=== PATIENT | female | born 1980 | race Caucasian/White ===

== ENCOUNTER 2017-01-30 11:11 | Emergency (ER) | payer OTHER ==
[~2017-01-30] VITALS: Ht 154.9 cm; Wt 98.5 kg
[2017-01-30 11:15] VITALS: BP 107/67
--- NOTE | 2017-01-30 11:23 | NUR ---
PATIENT IS A 36 YO FEMALE BIB SELF FOR BOTH EARS FEELIING CLOGGED, PATIENT IS AWAKE AND ALERT NO DISTRESS NOTED. TO BED 7 FOR MD GOODE.
--- NOTE | 2017-01-30 11:31 | NUR ---
Dr. Ventura evaluating patient at bedside.
--- NOTE | 2017-01-30 11:51 | NUR ---
IRRIGATED TO YARELY EARS DONE BY GLORIA DAVIS. PT TOLERATED PREOCEDURE WELL.
--- NOTE | 2017-01-30 11:51 | NUR ---
Zhanna rodriguez in EDM - 01/30/17 at 1157 by MED1 IRRIGATED TO L EAR DONE BY GLORIA DAVIS. PT TOLERATED PREOCEDURE WELL.
[2017-01-30 12:54] VITALS: BP 100/60
--- NOTE | 2017-01-30 12:54 | NUR ---
Patient discharged with v/s stable. Written and verbal after care instructions given and explained. Patient alert, oriented and verbalized understanding of instructions. Ambulatory with steady gait. All questions addressed prior to discharge. ID band removed. Patient advised to follow up with PMD. Rx of IBUPROFEN & CORTISPORIN given. Patient educated on indication of medication including possible reaction and side effects. Opportunity to ask questions provided and answered.
== END 2017-01-30 12:54 | disposition home or self-care (01) ==
LOC: MED 11:11
DX: H60.93 Unspecified otitis externa, bilateral (principal); H61.23 Impacted cerumen, bilateral
CPT/HCPCS: 99283

== ENCOUNTER 2019-01-09 08:54 | Emergency (ER) | payer OTHER ==
[~2019-01-09] VITALS: Ht 154.9 cm; Wt 98.5 kg
[2019-01-09 09:13] VITALS: BP 114/69
--- NOTE | 2019-01-09 09:21 | NUR ---
C/O LT ARM PAIN/SWELLING SINCE WEDNESDAY AFTER FE INFUSION X 5 DAYS, LITTLE FLEXION, UNABLE TO EXTEND LT ARM. HX: LOW FE . DENIES N/V/D; SKIN IS PINK/WARM/DRY; AAOX4 WITH EVEN AND STEADY GAIT; LUNGS CLEAR BL; HR EVEN AND REGULAR; PT DENIES ANY FEVER, CP, SOB, OR COUGH AT THIS TIME; PATIENT STATES PAIN OF 5/10 AT THIS TIME; VSS; PATIENT POSITIONED FOR COMFORT; HOB ELEVATED; BEDRAILS UP X2; BED DOWN. ER MD MADE AWARE OF PT STATUS.
[2019-01-09 10:36] VITALS: BP 110/72
--- NOTE | 2019-01-09 10:36 | NUR ---
Patient discharged with v/s stable. Written and verbal after care instructions given and explained. Patient verbalized understanding. Carried with steady gait. All questions addressed prior to discharge. Advised to follow up with PMD.
== END 2019-01-09 10:36 | disposition home or self-care (01) ==
LOC: MED 08:54
DX: I80.9 Phlebitis and thrombophlebitis of unspecified site (principal); D50.9 Iron deficiency anemia, unspecified
CPT/HCPCS: 93971; 99284; Q0092

== ENCOUNTER 2020-05-11 17:40 | Emergency (ER) | payer OTHER ==
[~2020-05-11] VITALS: Ht 157.5 cm; Wt 97.5 kg
[2020-05-11 17:53] VITALS: BP 115/75
--- NOTE | 2020-05-11 17:57 | NUR ---
Patient ambulated to bed 10. RN evaluating the patient at bedside.
--- NOTE | 2020-05-11 17:57 | NUR ---
PATIENT AMBULATED TO BED 10
--- NOTE | 2020-05-11 18:07 | NUR ---
Dr. Herbert is evaluating the patient with female bus repair supervisor.
--- NOTE | 2020-05-11 18:13 | NUR ---
STOOD IN FEMALE HAT BAND ATTACHER FOR DR. NGO DURING PATIENT EXAM
[2020-05-11] MEDS ORDERED: KETOROLAC 30 MG/ML VIAL IVP ONE (18:15)
--- NOTE | 2020-05-11 18:30 | NUR ---
39 Y/O F C/O R BREAST PAIN, HURTS ON INSPIRATION AND EXPIRATION. WAS COVID POSITIVE IN MARCH, DR CLEARED HER. DENIES ANY CHEST PAIN, SOB, AND COUGH. 8/10 ACHING AND TENDER PAIN STARTED 05/04/20. PT STATED IT STARTED 2 MO AGO, BUT HAS GOTTEN WORSE. HAS BEEN TAKING IBUPROFEN FOR PAIN, LAST DOSE WAS @1800 800MG. PT SAYS SHE'S NORMALLY CONSTIPATED AND BURNING WHILE URINATING. LMP: 05/02/20. NO PMH.
[2020-05-11 18:47] LABS: BASOPHILS # (AUTO) 0.1 K/uL (0.00-0.22); EOSINOPHILS # (AUTO) 0.2 K/uL (0-0.4); HEMOGLOBIN 7.9 g/dL (12.0-16.0); MONOCYTES # (AUTO) 0.7 K/uL (0.8-1.0); WHITE BLOOD COUNT (AUTO) 10.8 K/uL (4.8-10.8)
[2020-05-11 18:50] LABS: ANION GAP 14.5 (8-16); CARBON DIOXIDE 27.1 mmol/L (21-32); CREATININE 0.7 mg/dL (0.6-1.3); POTASSIUM 3.6 mmol/L (3.5-5.1)
[2020-05-11 18:58] LABS: BASOPHILS % (AUTO) 0.6 % (0.0-2.0); HEMATOCRIT 25.4 % (36-48); LYMPHOCYTES # (AUTO) 2.2 K/uL (2.5-16.5); LYMPHOCYTES % (AUTO) 20.7 % (20.5-51.1); MEAN CORPUSCULAR HEMOGLOBIN 18 pg (27-31); MEAN CORPUSCULAR HGB CONC 31 g/dL (33-37); MEAN CORPUSCULAR VOLUME 57.2 fL (80-94); MONOCYTES % (AUTO) 6.4 % (1.7-9.3); NEUTROPHILS # (AUTO) 7.6 K/uL (1.8-7.7); NEUTROPHILS % (AUTO) 70.3 % (42.2-75.2); PLATELET COUNT (AUTO) 411 K/uL (140-450); RED BLOOD CELL COUNT(AUTO) 4.44 MIL/uL (4.20-5.40); RED CELL DISTRIBUTION WIDTH 21.8 % (11.6-13.7)
--- NOTE | 2020-05-11 19:15 | NUR ---
RECEIVED TRANSDFER OF CARE REPORT FROM SVETLANA CABALLERO FOR CONTINUATION OF CARE.
--- NOTE | 2020-05-11 19:27 | NUR ---
PT FOUND AWAKE IN SEMI-FOWLERS POSITION IN BED. PT STATES NO PAIN, NO DISCOMFORT, AND NO DISTRESS. BED IS LOCKED IN LOWEST POSITION WITH 1 SIDE RAIL UP. WILL CONTINUE TO MONITOR.
--- NOTE | 2020-05-11 19:32 | NUR ---
URINE SAMPLE COLLECTED AND PLACED IN DIRTY UTILITY.
--- NOTE | 2020-05-11 19:38 | NUR ---
PT TAKEN TO CT VIA WHEELCHAIR BY FINANCIAL SALES MANAGER.
--- NOTE | 2020-05-11 19:54 | NUR ---
PT RETURNED TO BED FROM CT VIA WHEELCHAIR BY RADIOLOGIST TECH.
--- NOTE | 2020-05-11 20:28 | NUR ---
PT WAS PROVIDED A CUP OF WATER.
--- NOTE | 2020-05-11 21:06 | NUR ---
ERMD AT BEDSIDE FOR MEDICAL EVALUATION.
[2020-05-11 21:20] VITALS: BP 103/56
--- NOTE | 2020-05-11 21:20 | NUR ---
Patient discharged with v/s stable. Written and verbal after care instructions given and explained. Patient alert, oriented and verbalized understanding of instructions. Ambulatory with steady gait. All questions addressed prior to discharge. ID band removed. Patient advised to follow up with PMD. Rx of LIDODERM AND NAPROXEN given. Patient educated on indication of medication including possible reaction and side effects. Opportunity to ask questions provided and answered.
--- NOTE | 2020-05-11 21:20 | NUR ---
IV removed, catheter intact and site benign. Applied folded 4x4 gauze and tape to stop bleeding.
== END 2020-05-11 21:20 | disposition home or self-care (01) ==
LOC: MED 17:40
DX: M94.0 Chondrocostal junction syndrome [Tietze] (principal); I95.9 Hypotension, unspecified; L29.9 Pruritus, unspecified; D64.9 Anemia, unspecified
CPT/HCPCS: 36415; 71045; 71275; 80048; 81025; 84484; 85025; 85379; 93005; 96374; 99285; J1885; Q9967

== ENCOUNTER 2021-03-14 11:58 | Emergency (ER) | payer OTHER ==
[~2021-03-14] VITALS: Ht 154.9 cm; Wt 75.7 kg
[2021-03-14 12:14] VITALS: BP 97/56
--- NOTE | 2021-03-14 12:23 | NUR ---
PT C/O DIZZINESS AND NAUSEA SINCE THIS AM. PT STATES HX OF ANEMIA AND CONCERNED HER HGB MAY BE LOW. PT APPEARS ANXIOUS. PENDING ER MD GOODE.
[2021-03-14] MEDS ORDERED: NACL 0.9% 1,000 ML IV ONE (12:55)
[2021-03-14 14:11] LABS: BASOPHILS # (AUTO) 0.1 K/uL (0.00-0.22); BASOPHILS % (AUTO) 0.8 % (0.0-2.0); EOSINOPHILS # (AUTO) 0.2 K/uL (0-0.4); EOSINOPHILS % (AUTO) 2.3 % (0.0-4.0); HEMATOCRIT 24.6 % (36-48); HEMOGLOBIN 7.5 g/dL (12.0-16.0); LYMPHOCYTES # (AUTO) 1.5 K/uL (2.5-16.5); LYMPHOCYTES % (AUTO) 22.8 % (20.5-51.1); MEAN CORPUSCULAR HEMOGLOBIN 17 pg (27-31); MEAN CORPUSCULAR HGB CONC 31 g/dL (33-37); MEAN CORPUSCULAR VOLUME 54.3 fL (80-94); MONOCYTES # (AUTO) 0.4 K/uL (0.8-1.0); MONOCYTES % (AUTO) 6.7 % (1.7-9.3); NEUTROPHILS # (AUTO) 4.4 K/uL (1.8-7.7); NEUTROPHILS % (AUTO) 67.4 % (42.2-75.2); PLATELET COUNT (AUTO) 408 K/uL (140-450); RED BLOOD CELL COUNT(AUTO) 4.53 MIL/uL (4.20-5.40); RED CELL DISTRIBUTION WIDTH 21.7 % (11.6-13.7); WHITE BLOOD COUNT (AUTO) 6.5 K/uL (4.8-10.8)
--- NOTE | 2021-03-14 14:14 | NUR ---
PT TAKEN TO CHAIR Amira.
[2021-03-14 14:20] LABS: ALBUMIN 3.9 g/dL (3.4-5.0); ANION GAP 10.5 (8-16); CARBON DIOXIDE 26.1 mmol/L (21-32); CREATININE 0.7 mg/dL (0.6-1.3); POTASSIUM 3.6 mmol/L (3.5-5.1); TOTAL BILIRUBIN 0.4 mg/dL (0.0-1.0)
--- NOTE | 2021-03-14 14:56 | NUR ---
PT AMBULATED TO ER BED 6
--- NOTE | 2021-03-14 16:09 | NUR ---
pt resting in [facility], pending 1 unit prbcs. spoke to blood bank states is still crossmatching blood.
--- NOTE | 2021-03-14 17:11 | NUR ---
CALLED LAB REGARDING UNIT OF BLOOD, PER APRIL ([facility]), SHE CALLED [facility] AND THEY ARE NOT PROVIDING ANYTHING. DR BOWERS MADE AWARE
[2021-03-14 17:29] VITALS: BP 99/70
--- NOTE | 2021-03-14 17:29 | NUR ---
pt requesting to leave ama. dr taveras spoke to pt.
--- NOTE | 2021-03-14 17:30 | NUR ---
Patient does not wish to proceed with medical care recommended by dr taveras. Patient given information related to possible complications, up to and including , which could occur as a result of leaving hospital at this time. Patient verbalizes understanding of risks involved leaving against medical advice. Patient has signed AMA form.
== END 2021-03-14 17:20 | disposition left against medical advice (07) ==
LOC: MED 11:58
DX: D50.9 Iron deficiency anemia, unspecified (principal); N92.0 Excessive and frequent menstruation with regular cycle
CPT/HCPCS: 36415; 80053; 81025; 85025; 86886; 86900; 86901; 86920; 96360; 99283; J7030

== ENCOUNTER 2023-12-11 10:54 | Inpatient (IN) | payer OTHER ==
[~2023-12-11] VITALS: Ht 157.5 cm; Wt 81.6 kg
[2023-12-11 11:14] VITALS: BP 121/62; PULSE 100; RESP 20; TEMP 97.9
[2023-12-11] MEDS: NACL 0.9% 1,000 ML IV SCH ×2 (12:10→17:23)
[2023-12-11] MEDS: KETOROLAC 30 MG/ML VIAL IVP ONE (12:13)
[2023-12-11] MEDS: ONDANSETRON 4 MG/2 ML VIAL IVP ONE (12:13)
[2023-12-11 12:19] LABS: BASOPHILS % (AUTO) 0.2 % (0.0-2.0); EOSINOPHILS # (AUTO) 0.1 K/uL (0-0.4); EOSINOPHILS % (AUTO) 0.6 % (0.0-4.0); HEMATOCRIT 40.3 % (36-48); HEMOGLOBIN 13.6 g/dL (12.0-16.0); LYMPHOCYTES # (AUTO) 1.1 K/uL (2.5-16.5); LYMPHOCYTES % (AUTO) 10.3 % (20.5-51.1); MEAN CORPUSCULAR HEMOGLOBIN 27 pg (27-31); MEAN CORPUSCULAR HGB CONC 34 g/dL (33-37); MEAN CORPUSCULAR VOLUME 80.6 fL (80-94); MONOCYTES # (AUTO) 0.7 K/uL (0.8-1.0); MONOCYTES % (AUTO) 6.9 % (1.7-9.3); NEUTROPHILS # (AUTO) 8.9 K/uL (1.8-7.7); PLATELET COUNT (AUTO) 298 K/uL (140-450); RED BLOOD CELL COUNT(AUTO) 4.99 MIL/uL (4.20-5.40); RED CELL DISTRIBUTION WIDTH 15.3 % (11.6-13.7); WHITE BLOOD COUNT (AUTO) 10.8 K/uL (4.8-10.8)
[2023-12-11 12:19] LABS: APPEARANCE,URINE SL CLOUDY (CLEAR); BILIRUBIN,URINE 2+ (NEGATIVE); BLOOD, URINE NEGATIVE (NEGATIVE); COLOR,URINE ORANGE (YELLOW); LEUKOCYTE ESTERASE ,URINE 1+ (NEGATIVE); NITRITE, URINE POSITIVE (NEGATIVE); PH,URINE 7.5 (5.0-9.0); PROTEIN,URINE TRACE (NEGATIVE); UGLUCOSE NEGATIVE (NEGATIVE)
[2023-12-11 12:30] LABS: BACTERIA,URINE >30 (MANY) /HPF (None Seen); MUCUS,URINE 1+ /LPF (None Seen); RBC,URINE 0-5 /HPF (0-5); SQUAMOUS EPITHELIAL CELL,UR 0-3 (FEW) /LPF (0-3 (FEW))
[2023-12-11 12:32] LABS: ICTOTEST POSITIVE (NEGATIVE)
[2023-12-11 12:33] LABS: ANION GAP 14.6 (8-16); CALCIUM 9.4 mg/dL (8.5-10.1); CARBON DIOXIDE 24.7 mmol/L (21-32); CREATININE 0.7 mg/dL (0.6-1.3); POTASSIUM 4.3 mmol/L (3.5-5.1)
[2023-12-11] MEDS ORDERED: PIPERACILLIN/TAZOBACTAM 3.375 GM VIAL IV ONE (13:44)
[2023-12-11] MEDS ORDERED: KCL 20 MEQ IN 100 mL PREMIX 200 ML IV PRN (13:55)
[2023-12-11] MEDS ORDERED: MAGNESIUM OXIDE 400 MG TAB PO PRN (13:55)
[2023-12-11 14:13] LABS: INR 1.02 (0.8-1.2); PARTIAL THROMBOPLASTIN TIME 27.4 secs (22-35.6); PROTHROMBIN TIME 10.7 secs (10.8-13.4)
[2023-12-11 14:14] LABS: ALBUMIN 3.5 g/dL (3.4-5.0); TOTAL BILIRUBIN 1.5 mg/dL (0.0-1.0); TOTAL PROTEIN, SERUM 7.4 g/dL (6.4-8.2)
[2023-12-11] MEDS ORDERED: SEMA2.4P SQ (14:17)
[2023-12-11] MEDS ORDERED: MULT-2472 PO (14:17)
[2023-12-11 14:19] LABS: LACTIC ACID 1.1 mmol/L (0.4-2.0)
[2023-12-11 15:00] VITALS: PULSE 72; RESP 14; O2SAT 98
[2023-12-11] MEDS: PIPERACILLIN/TAZOBACTAM 3.375 GM in DEXT 5% MINI-BAG PLUS 50 ML IV ONE (17:24)
[2023-12-11] MEDS: PIPERACILLIN/TAZOBACTAM 3.375 GM in DEXTROSE 5% 50 ML IV SCH (17:32)
[2023-12-11 17:57] VITALS: BP 97/65; PULSE 68; RESP 18; TEMP 97.2; O2SAT 100
[2023-12-11] MEDS: MORPHINE SULFATE 4 MG/ML SYR IVP PRN (19:36)
[2023-12-11 20:00] VITALS: BP 111/65; PULSE 70; RESP 18; TEMP 97; O2SAT 99
[2023-12-11] MEDS: ONDANSETRON 4 MG/2 ML VIAL IVP PRN (22:15)
[2023-12-12 04:00] VITALS: BP 98/60; PULSE 71; RESP 19; TEMP 96.6; O2SAT 98
[2023-12-12 06:51] LABS: BASOPHILS % (AUTO) 0.7 % (0.0-2.0); EOSINOPHILS # (AUTO) 0.2 K/uL (0-0.4); EOSINOPHILS % (AUTO) 3.5 % (0.0-4.0); HEMATOCRIT 35.9 % (36-48); HEMOGLOBIN 12.2 g/dL (12.0-16.0); LYMPHOCYTES # (AUTO) 1.4 K/uL (2.5-16.5); LYMPHOCYTES % (AUTO) 22.1 % (20.5-51.1); MEAN CORPUSCULAR HEMOGLOBIN 28 pg (27-31); MEAN CORPUSCULAR HGB CONC 34 g/dL (33-37); MONOCYTES # (AUTO) 0.5 K/uL (0.8-1.0); NEUTROPHILS % (AUTO) 65.7 % (42.2-75.2); PLATELET COUNT (AUTO) 289 K/uL (140-450); RED BLOOD CELL COUNT(AUTO) 4.44 MIL/uL (4.20-5.40); WHITE BLOOD COUNT (AUTO) 6.1 K/uL (4.8-10.8)
[2023-12-12 07:04] LABS: ANION GAP 10.4 (8-16); CALCIUM 8.2 mg/dL (8.5-10.1); CARBON DIOXIDE 28.4 mmol/L (21-32); CREATININE 0.9 mg/dL (0.6-1.3); MAGNESIUM 2.1 mg/dL (1.8-2.4); POTASSIUM 3.8 mmol/L (3.5-5.1); TOTAL BILIRUBIN 1.2 mg/dL (0.0-1.0); TOTAL PROTEIN, SERUM 6.5 g/dL (6.4-8.2)
[2023-12-12 08:00] VITALS: BP 91/56; PULSE 70; PULSE 74; RESP 18; TEMP 97.7; O2SAT 98; O2SAT 99
[2023-12-12] MEDS: DOCUSATE SODIUM 100 MG GELCAP PO SCH (08:54)
[2023-12-12] MEDS: MORPHINE SULFATE 4 MG/ML SYR IVP SCH (11:21)
[2023-12-12 12:00] VITALS: BP 91/56; PULSE 74; RESP 18; TEMP 97.7; O2SAT 98
[2023-12-12 16:00] VITALS: BP 101/55; PULSE 71; RESP 18; TEMP 97.9; O2SAT 100
[2023-12-12] MEDS: ACETAMINOPHEN 325 MG TAB PO PRN (18:16)
[2023-12-12 20:00] VITALS: BP 108/67; PULSE 73; RESP 18; TEMP 97.3; O2SAT 98; O2SAT 99
[2023-12-12] MEDS: MEDS-TO-BEDS MC SCH (21:00)
[2023-12-13 04:00] VITALS: BP 99/62; PULSE 69; RESP 18; TEMP 97.1; O2SAT 98
[2023-12-13 06:18] LABS: BASOPHILS % (AUTO) 0.9 % (0.0-2.0); EOSINOPHILS # (AUTO) 0.1 K/uL (0-0.4); EOSINOPHILS % (AUTO) 2.7 % (0.0-4.0); HEMATOCRIT 33.5 % (36-48); HEMOGLOBIN 11.3 g/dL (12.0-16.0); LYMPHOCYTES # (AUTO) 1.7 K/uL (2.5-16.5); LYMPHOCYTES % (AUTO) 32.5 % (20.5-51.1); MEAN CORPUSCULAR HEMOGLOBIN 27 pg (27-31); MEAN CORPUSCULAR HGB CONC 34 g/dL (33-37); MEAN CORPUSCULAR VOLUME 80.5 fL (80-94); MONOCYTES # (AUTO) 0.4 K/uL (0.8-1.0); MONOCYTES % (AUTO) 6.9 % (1.7-9.3); PLATELET COUNT (AUTO) 250 K/uL (140-450); RED BLOOD CELL COUNT(AUTO) 4.16 MIL/uL (4.20-5.40); RED CELL DISTRIBUTION WIDTH 15.1 % (11.6-13.7); WHITE BLOOD COUNT (AUTO) 5.2 K/uL (4.8-10.8)
[2023-12-13 06:35] LABS: ALBUMIN 2.9 g/dL (3.4-5.0); ANION GAP 11.2 (8-16); CALCIUM 8.2 mg/dL (8.5-10.1); CARBON DIOXIDE 25.2 mmol/L (21-32); CREATININE 0.7 mg/dL (0.6-1.3); MAGNESIUM 1.9 mg/dL (1.8-2.4); POTASSIUM 3.4 mmol/L (3.5-5.1); TOTAL BILIRUBIN 0.9 mg/dL (0.0-1.0); TOTAL PROTEIN, SERUM 6.4 g/dL (6.4-8.2)
[2023-12-13] MEDS ORDERED: LACTATED RINGERS 1,000 ML IV SCH (07:25)
[2023-12-13] MEDS ORDERED: ONDANSETRON 4 MG/2 ML VIAL IVP PRN (07:25)
[2023-12-13] MEDS ORDERED: ACETAMINOPHEN 100 ML IV SCH (07:25)
[2023-12-13 08:00] VITALS: BP 100/66; PULSE 65; RESP 18; TEMP 97; O2SAT 98
[2023-12-13 08:16] VITALS: PULSE 68; RESP 20; O2SAT 99
[2023-12-13] MEDS: MIDAZOLAM 2 MG/2 ML VIAL ONE (09:34)
[2023-12-13] MEDS: fentaNYL citrate 0.05 MG/ML VIAL ONE ×2 (09:35→11:15)
[2023-12-13] MEDS: PROPOFOL 200 MG/20 ML VIAL IV ONE (09:36)
[2023-12-13] MEDS: ONDANSETRON 4 MG/2 ML VIAL ONE (09:36)
[2023-12-13] MEDS: WATER STERILE 10 ML MC ONE (09:36)
[2023-12-13] MEDS: ROCURONIUM 50 MG/5 ML VIAL IV ONE (09:36)
[2023-12-13] MEDS: PHENYLEPHRINE 10 MG/ML VIAL ONE (09:36)
[2023-12-13] MEDS: METOCLOPRAMIDE 10 MG/2 ML INJ VIAL ONE (09:36)
[2023-12-13] MEDS: DEXAMETHASONE 4 MG/ML VIAL ONE (09:36)
[2023-12-13] MEDS: SUCCINYLCHOLINE CHLORIDE 200 MG/10 ML VIAL IVP ONE (09:37)
[2023-12-13] MEDS: SUGAMMADEX SODIUM 200 MG/2 ML VIAL IV ONE (10:56)
[2023-12-13] MEDS: LIDOCAINE/EPI 1% 1:100000 20 ML VIAL INJ ONE (11:00)
[2023-12-13] MEDS: fentaNYL citrate 0.05 MG/ML VIAL IVP ONE (11:15)
[2023-12-13] MEDS ORDERED: SEVOFLURANE 250 ML BTL INH ONE (11:18)
[2023-12-13] MEDS: HYDROmorphone PFS 2 MG/ML SYR ONE (11:39)
[2023-12-13] MEDS: HYDROmorphone 1 MG/ML AMP IVP PRN (11:40)
[2023-12-13] MEDS: POTASSIUM CHLORIDE 10 MEQ TABER PO PRN (14:16)
[2023-12-13] MEDS ORDERED: HYDR-5043 PO (14:41)
[2023-12-13] MEDS ORDERED: CEPH500T PO (14:44)
[2023-12-13 20:00] VITALS: BP 108/65; PULSE 78; RESP 18; RESP 20; TEMP 97.5; O2SAT 97; O2SAT 99
[2023-12-14 04:00] VITALS: BP 104/63; PULSE 73; RESP 18; TEMP 98.2; O2SAT 98
[2023-12-14 06:43] LABS: BASOPHILS % (AUTO) 0.2 % (0.0-2.0); EOSINOPHILS % (AUTO) 0.2 % (0.0-4.0); HEMATOCRIT 34.2 % (36-48); HEMOGLOBIN 11.4 g/dL (12.0-16.0); LYMPHOCYTES # (AUTO) 1.7 K/uL (2.5-16.5); LYMPHOCYTES % (AUTO) 17.3 % (20.5-51.1); MEAN CORPUSCULAR HEMOGLOBIN 27 pg (27-31); MEAN CORPUSCULAR HGB CONC 33 g/dL (33-37); MEAN CORPUSCULAR VOLUME 80.9 fL (80-94); MONOCYTES # (AUTO) 0.7 K/uL (0.8-1.0); MONOCYTES % (AUTO) 7.1 % (1.7-9.3); NEUTROPHILS # (AUTO) 7.4 K/uL (1.8-7.7); NEUTROPHILS % (AUTO) 75.2 % (42.2-75.2); PLATELET COUNT (AUTO) 273 K/uL (140-450); RED BLOOD CELL COUNT(AUTO) 4.23 MIL/uL (4.20-5.40); RED CELL DISTRIBUTION WIDTH 15.3 % (11.6-13.7); WHITE BLOOD COUNT (AUTO) 9.8 K/uL (4.8-10.8)
[2023-12-14 08:00] VITALS: BP 109/70; PULSE 74; RESP 18; TEMP 97.6; O2SAT 98
[2023-12-14 08:38] LABS: ALBUMIN 2.9 g/dL (3.4-5.0); ANION GAP 11.4 (8-16); CALCIUM 8.4 mg/dL (8.5-10.1); CARBON DIOXIDE 27.6 mmol/L (21-32); CREATININE 0.8 mg/dL (0.6-1.3); TOTAL BILIRUBIN 0.8 mg/dL (0.0-1.0); TOTAL PROTEIN, SERUM 6.5 g/dL (6.4-8.2)
[2023-12-14] MEDS: HYDROcodone/APAP 5/325 MG 1 TAB TAB PO PRN (13:13)
[2023-12-14 20:00] VITALS: BP 99/60; PULSE 77; RESP 18; TEMP 97.8; O2SAT 97; O2SAT 98
[2023-12-15 04:00] VITALS: BP 96/56; PULSE 81; RESP 18; TEMP 97.7; O2SAT 97
[2023-12-15 06:36] LABS: BASOPHILS % (AUTO) 0.4 % (0.0-2.0); EOSINOPHILS # (AUTO) 0.1 K/uL (0-0.4); EOSINOPHILS % (AUTO) 0.7 % (0.0-4.0); HEMATOCRIT 33.5 % (36-48); HEMOGLOBIN 11.3 g/dL (12.0-16.0); LYMPHOCYTES # (AUTO) 1.7 K/uL (2.5-16.5); LYMPHOCYTES % (AUTO) 24.9 % (20.5-51.1); MEAN CORPUSCULAR HEMOGLOBIN 27 pg (27-31); MEAN CORPUSCULAR HGB CONC 34 g/dL (33-37); MEAN CORPUSCULAR VOLUME 80.5 fL (80-94); MONOCYTES # (AUTO) 0.5 K/uL (0.8-1.0); NEUTROPHILS # (AUTO) 4.7 K/uL (1.8-7.7); PLATELET COUNT (AUTO) 247 K/uL (140-450); RED BLOOD CELL COUNT(AUTO) 4.16 MIL/uL (4.20-5.40); RED CELL DISTRIBUTION WIDTH 15.4 % (11.6-13.7)
[2023-12-15 07:39] LABS: ANION GAP 11.8 (8-16); CALCIUM 8.4 mg/dL (8.5-10.1); CARBON DIOXIDE 27.7 mmol/L (21-32); CREATININE 0.7 mg/dL (0.6-1.3); MAGNESIUM 1.9 mg/dL (1.8-2.4); POTASSIUM 3.5 mmol/L (3.5-5.1); TOTAL BILIRUBIN 0.6 mg/dL (0.0-1.0); TOTAL PROTEIN, SERUM 6.7 g/dL (6.4-8.2)
[2023-12-15 08:00] VITALS: BP 100/55; PULSE 73; PULSE 77; RESP 18; TEMP 97.2; O2SAT 98
[2023-12-15 15:18] VITALS: BP 106/62; PULSE 74; RESP 18; TEMP 97.6
== END 2023-12-15 17:30 | disposition home or self-care (01) | DRG 263 ==
LOC: MED 10:54 → MMU 13:56 → MTU 14:33
PROVIDERS: ADMIT Hospitalist; ATTEND Hospitalist
PROC: 0FT44ZZ Resection of Gallbladder, Percutaneous Endoscopic Approach (ICD-10-PCS; principal; 2023-12-13 09:00)
DX: K81.0 Acute cholecystitis (principal); R65.10 Systemic inflammatory response syndrome (SIRS) of non-infectious origin without acute organ dysfunction; K52.9 Noninfective gastroenteritis and colitis, unspecified; E66.9 Obesity, unspecified; N39.0 Urinary tract infection, site not specified; N83.292 Other ovarian cyst, left side; Z68.32 Body mass index [BMI] 32.0-32.9, adult; Z79.899 Other long term (current) drug therapy
CPT/HCPCS: 36415; 71045; 72125; 72131; 76705; 76856; 78445; 80048; 80053; 80076; 81001; 82550; 82553; 83036; 83540; 83605; 83690; 83735; 84443; 84484; 84703; 85025; 85610; 85651; 85730; 86140; 87040; 87081; 87086; 87186; 88304; 93005; 96361; 96374; 96375; 99291; J0330; J1100; J1170; J1644; J1885; J2001; J2250; J2270; J2405; J2543; J2704; J2765; J3010; J3490; J7030; J7060; Q0092